=== PATIENT | male | born 1995 | race Caucasian/White ===

== ENCOUNTER 2024-10-01 08:41 | Emergency (ER) | payer MEDICAID ==
[~2024-10-01] VITALS: Ht 177.8 cm; Wt 100.0 kg
[2024-10-01 08:44] VITALS: TEMP 36.7; O2SAT 99
[2024-10-01 10:34] VITALS: BP 129/91; PULSE 98; RESP 16
[2024-10-01] MEDS: KETOROLAC 30MG/ML VIAL IM ONE (10:34)
[2024-10-01] MEDS ORDERED: ACET-2708 MT (10:46)
== END 2024-10-01 11:21 | disposition home or self-care (01) ==
LOC: ER 08:41
DX: M79.601 Pain in right arm (principal); R07.9 Chest pain, unspecified; M41.9 Scoliosis, unspecified; Z88.2 Allergy status to sulfonamides; V43.52XA Car driver injured in collision with other type car in traffic accident, initial encounter; Y93.55 Activity, bike riding; Y92.89 Other specified places as the place of occurrence of the external cause; Y99.8 Other external cause status
CPT/HCPCS: 99284; 71101; 73030; 73060; 96372; J1885; A4565